=== PATIENT | female | born 1985 | race African-American/Black ===

== ENCOUNTER 2024-05-09 13:02 | Emergency (ER) | payer OTHER ==
[2024-05-09 13:11] VITALS: RESP 20; BMI 28.1
[2024-05-09] MEDS ORDERED: KETOROLAC TROMETHAMINE 15 MG/ML VIAL ONE (14:40)
[2024-05-09] MEDS: LACTATED RINGERS SOLUTION 1,000 ML/1,000 ML INFUS.BAG IV SCH (15:52)
[2024-05-09 15:57] LABS: HEMATOCRIT 40.4 % (32.4-45.2); HEMOGLOBIN 13.3 GM/dL (10.7-15.3); MCH 27.4 pg (25.7-33.7); MEAN PLT VOLUME 8.3 fl (7.5-11.1); PLATELET COUNT 438 10^3/uL (134-434); RBC 4.86 M/mm3 (3.60-5.2); RDW 14.7 % (11.6-15.6)
[2024-05-09] MEDS: KETOROLAC TROMETHAMINE 15 MG/ML VIAL IM ONE ×2 (16:00→19:15)
[2024-05-09 16:19] LABS: CHLORIDE 105 mmol/L (98-107); POTASSIUM 4.4 mmol/L (3.5-5.1); SODIUM 137 mmol/L (136-145)
[2024-05-09 16:21] LABS: ALBUMIN 4.1 g/dl (3.4-5.0); ANION GAP 4 mmol/L (4-13); BLOOD UREA NITROGEN 13.1 mg/dL (7-18); CALCIUM 9.6 mg/dL (8.5-10.1); CO2 28 mmol/L (21-32); GLUCOSE,RANDOM 96 mg/dL (74-106)
[2024-05-09 16:23] LABS: SGOT/AST 29 U/L (15-37); SGPT/ALT 13 U/L (13-61)
[2024-05-09 16:26] LABS: BILIRUBIN,TOTAL 0.4 mg/dL (0.2-1); TOT PROT 8.4 g/dl (6.4-8.2)
[2024-05-09 16:27] LABS: ALK PHOS 65 U/L (45-117)
[2024-05-09 16:31] LABS: CREATININE 0.9 mg/dL (0.55-1.3)
[2024-05-09 16:50] LABS: ANISOCYTOSIS 1+; MACROCYTOSIS 1+
[2024-05-09 18:10] LABS: EPI CELLS 17 /uL (0-25.1); HYALINE CASTS 1 /uL (0-3.1); PH,URINE 7.5 (5.0-8.0); URINE APPEARANCE CLEAR; URINE BACTERIA 402 /uL (0-1359); URINE BILIRUBIN NEGATIVE (NEGATIVE); URINE COLOR YELLOW; URINE GLUCOSE (UA) NEGATIVE (NEGATIVE); URINE KETONE TRACE (NEGATIVE); URINE LEUK ESTERASE NEGATIVE (NEGATIVE); URINE NITRITE NEGATIVE (NEGATIVE); URINE PROTEIN 1+ (NEGATIVE); URINE RBC 1186 /uL (0-23.9); URINE WBC 18 /uL (0-25.8)
[2024-05-09] MEDS: KETOROLAC TROMETHAMINE 15 MG/ML VIAL IVPUSH ONE (19:15)
[2024-05-09 20:40] VITALS: BP 110/63; PULSE 70; TEMP 98.2
== END 2024-05-09 21:17 | disposition home or self-care (01) ==
LOC: JER 13:02
PROC: 3E0133Z Introduction of Anti-inflammatory into Subcutaneous Tissue, Percutaneous Approach (ICD-10-PCS; principal; 2024-05-09)
DX: R10.84 Generalized abdominal pain (principal); R11.2 Nausea with vomiting, unspecified; R19.7 Diarrhea, unspecified; R50.9 Fever, unspecified
CPT/HCPCS: 36415; 74176-TC; 76830-TC; 80053; 81003; 83735; 84100; 84702; 85025; 86850; 86900; 86901; 87086; 99284-25